=== PATIENT | female | born 1955 | race Caucasian/White ===

== ENCOUNTER 2016-04-02 06:14 | Day surgery (SDC) | payer OTHER ==
[2016-03-28 14:53] LABS: URINE MICRO REVIEW NEEDED? NO; URINE SOURCE CLEAN CATCH
[2016-03-28 15:02] LABS: BILIRUBIN URINE NEGATIVE (NEGATIVE); BLOOD URINE NEGATIVE (NEGATIVE); COLOR YELLOW; GLUCOSE URINE NEGATIVE (NEGATIVE); LEUKOCYTES URINE NEGATIVE (NEGATIVE); NITRITE URINE NEGATIVE (NEGATIVE); PROTEIN URINE NEGATIVE (NEGATIVE); SP GRAVITY URINE 1.013; TURBIDITY URINE CLEAR (CLEAR); UROBILINOGEN URINE NORMAL (NORMAL)
[2016-03-28 15:03] LABS: UR EPITHELIAL CELLS <10 /HPF (<10); URINE BACTERIA NEGATIVE /HPF; URINE RBC <10 /HPF (<10); URINE WBC <10 /HPF (<10)
[2016-03-28 15:04] LABS: HEMATOCRIT 33.6 % (37.0-47.0); HEMOGLOBIN 11.1 g/dL (12.0-16.0); MCH 31.8 PG (27-31); MCV 96.3 FL (81-99); MPV 9.6 FL (7.4-10.4); RBC 3.49 XMIL (4.2-5.4)
[2016-04-02] MEDS ORDERED: PEPCID ONE (06:24)
[2016-04-02] MEDS ORDERED: REGLAN ONE (06:24)
[2016-04-02] MEDS ORDERED: LOVENOX ONE (06:25)
[2016-04-02] MEDS ORDERED: KEFZOL 1 GM/D5W 50 ML ONE (06:25)
[2016-04-02] MEDS ORDERED: LR 1,000 ML ONE ×3 (06:25→10:52)
[2016-04-02] MEDS ORDERED: METHYLENE BLUE 1% ONE (06:38)
[2016-04-02] MEDS ORDERED: BACITRACIN ONE (06:38)
[2016-04-02] MEDS ORDERED: NS 2,000 ML ONE (06:38)
[2016-04-02] MEDS: TRANSDERM-SCOP ONE ×2 (06:52→06:53)
[2016-04-02] MEDS ORDERED: FENTANYL ONE (09:47)
[2016-04-02] MEDS ORDERED: DIPRIVAN 1% ONE (09:48)
[2016-04-02] MEDS ORDERED: ZEMURON ONE (10:52)
[2016-04-02] MEDS ORDERED: LUBRIFRESH PM OPH OINTMENT ONE (10:52)
[2016-04-02] MEDS ORDERED: NEOSTIGMINE ONE (10:52)
[2016-04-02] MEDS ORDERED: ROBINUL ONE (10:52)
[2016-04-02] MEDS ORDERED: XYLOCAINE-MPF 2% ONE (10:52)
[2016-04-02] MEDS ORDERED: QUELICIN (DOSE) ONE (10:52)
[2016-04-02] MEDS ORDERED: PHENERGAN ONE (11:39)
[2016-04-02] MEDS ORDERED: NORCO-10 ONE (11:39)
[2016-04-02 13:06] VITALS: BP 125/76
--- NOTE | 2016-04-02 16:25 | OPERATIVE NOTE ---
PROCEDURE DATE: 04/02/2016 PROCEDURE: Bilateral exchange of implants and bilateral capsulotomies. SURGEON: Blas Westbrook MD. ICD-10 DIAGNOSIS CODE: N64.89. PROBLEM: Acquired deformity of the breast. CPT CODE: 18167, immediate insertion of implant, 95736-65, immediate insertion of implant on the other side, 88733 capsulotomy and 71638-60 capsulotomy on the other side. INDICATIONS FOR PROCEDURE: The patient is a 60-year-old white female who is known to me. We did bilateral mastectomies and tissue orthopedic brace maker reconstruction for severe fibrocystic disease in December 1997. In August 1998 she had her exchange of the expanders to implants. She has done well through time but slowly through time as her tissue envelope has changed the implants have become just a little bit more firm with a little bit more capsular contracture. She has lost some of her lower pole fullness and has too much upper pole projection. She had shaped style 363 implants placed at that time in 1998. The plan is to bring her back to the operating room today, put in fresh implants that are round shape not a shaped device, go up in size a little bit and score her lower capsules to allow more of the implant to create lower pole projection. DESCRIPTION OF PROCEDURE: The patient was brought to the operating room after she was marked in outpatient surgery in sitting position. She went to the operating room and general anesthesia, was prepped and draped. The previous incisions were all periareolar and we did not want to go through those today because it is a thin area of tissue so we decided to make approximately a 6 cm incision laterally and a little bit superiorly so we could go through the fat and the muscle of her implant pocket. On both sides these incisions were carried down to level of the implants. The implants were both palpated while in position and found to be in good orientation with the valve in the proper position. They were fixed to the tissues by some of the textured surface and by the valve cover. Both implants were deflated completely and removed from the pockets. The inframammary folds were at a good level. The pockets were scored in specifications checker board fashion on the bottom 30% of the pocket to allow more lower pole projection. A 300 mL sizer filled to 330 was placed in the right side and a 330 sizer filled to 360 was placed in the left side. It was felt that the bigger implant created more projection on the lower pole so that was what was decided to be used; 7 mm flat Gregg-Iraheta drains were placed in each pocket. Implants that were style 168, 330 mL implants were opened, put in the pockets and filled to 360. The pockets were closed down with 3-0 Polysorb interrupted sutures in the muscle, 3-0 Polysorb sutures in the fat, running 3-0 Polysorb deep dermal suture followed by running 4-0 Biosyn subcuticular stitch. The drains were secured with silk drain stitches. The type of implants that were used in this patient for this operation were Click Contact style 168 implants. They were 330 mL in size both filled to 360. The serial number for the right implant was [id number]. The serial number for the left implant was [id number]. She tolerated procedure well, was transferred to the recovery room in good condition.
== END 2016-04-02 12:55 | disposition home or self-care (01) ==
LOC: OPS 06:14
PROVIDERS: ATTEND Surgery Plastic and Reconstructive Surgery
DX: N64.89 Other specified disorders of breast (principal); I10 Essential (primary) hypertension; I25.10 Atherosclerotic heart disease of native coronary artery without angina pectoris; Z95.5 Presence of coronary angioplasty implant and graft; Z87.891 Personal history of nicotine dependence
CPT/HCPCS: 81001; 85027; C1789; J0330; J0690; J1650; J3010; J7030; J7120; Q9968; J2710